=== PATIENT | male | born 1965 | race African-American/Black ===

== ENCOUNTER 2018-03-24 14:42 | Inpatient (IN) | payer SELFPAY ==
[~2018-03-24] VITALS: Ht 167.6 cm; Wt 90.4 kg
[2018-03-24] MEDS ORDERED: ACETAMINOPHEN 325MG TABLET PO ONE (16:00)
[2018-03-24] MEDS ORDERED: SODIUM CHLORIDE 0.9% 1000ML BAG (SEPSIS BOLUS) IV ONE (16:00)
[2018-03-24 16:26] LABS: HEMATOCRIT. 33.5 % (42.0-52.0); HEMOGLOBIN. 10.9 g/dL (14.0-18.0); MEAN CORPUSCULAR HEMOGLOBIN 22.2 pg (28.0-32.0); MEAN CORPUSCULAR VOLUME 67.9 fL (80.0-94.0); MEAN PLATELET VOLUME 8.6 fl (7.4-10.4); PLATELET 76 x1000/uL (130-400); RED BLOOD CELL COUNT 4.93 mill/uL (4.7-6.1); RED CELL DISTRIBUTION WIDTH 14.7 % (11.6-14.6)
[2018-03-24 16:30] LABS: CHLORIDE 100 mEq/L (98-107)
[2018-03-24 16:35] LABS: AMMONIA < 10 uMol/L (<32)
[2018-03-24 16:37] LABS: INR 1.1; PARTIAL THROMBOPLASTIN TIME 25.2 sec (23.4-31.0); PROTHROMBIN TIME 11.4 sec (9.4-11.6)
[2018-03-24 17:09] LABS: PLATELET ESTIMATE MARKEDLY DECREASED
[2018-03-24 17:50] LABS: CLARITY URINE CLEAR (CLEAR); COLOR URINE DARK YELLOW (YELLOW); KETONES URINE NEGATIVE (NEGATIVE); LEUKOCYTE ESTERASE URINE NEGATIVE (NEGATIVE); NITRITE URINE NEGATIVE (NEGATIVE); OCCULT BLOOD URINE NEGATIVE (NEGATIVE); PROTEIN URINE 1+ (NEGATIVE); SPECIFIC GRAVITY URINE 1.021 (1.005-1.030)
[2018-03-24] MEDS ORDERED: PIPERACILLIN/TAZ 3.375G PREMIX 50 ML IV ONE (18:45)
[2018-03-24] MEDS ORDERED: VANCOMYCIN 1 G PREMIX 200 ML IV SCH (18:45)
[2018-03-24 18:48] LABS: *BARBITURATES SCREEN URINE NEGATIVE (NEGATIVE)
[2018-03-24 18:49] LABS: *AMPHETAMINES SCREEN URINE NEGATIVE (NEGATIVE); *BENZODIAZEPINES SCREEN URINE NEGATIVE (NEGATIVE); *COCAINE SCREEN URINE NEGATIVE (NEGATIVE); CANNABINOID URINE SCREEN NEGATIVE (NEGATIVE); METHADONE URINE SCREEN NEGATIVE (NEGATIVE); OPIATES URINE SCREEN NEGATIVE (NEGATIVE); PHENCYCLIDINE URINE SCREEN NEGATIVE (NEGATIVE)
[2018-03-24] MEDS ORDERED: HYDROCODONE/ACETAMINOPHEN 5/325MG TABLET PO PRN (21:00)
[2018-03-24] MEDS ORDERED: ACETAMINOPHEN 325MG TABLET PO PRN (21:00)
[2018-03-24] MEDS ORDERED: IPRATROPIUM/ALBUTEROL 0.5-3(2.5)MG/3ML NEB INH PRN (21:00)
[2018-03-24] MEDS ORDERED: DOCUSATE SODIUM 100MG CAPSULE PO PRN (21:00)
[2018-03-24] MEDS ORDERED: NA PHOS,M-B/NA PHOS,DI-BA ENEMA 118ML PR PRN (21:00)
[2018-03-24] MEDS ORDERED: MAGNESIUM/ALUMINUM HYDROXIDE/SIMETHICONE 30ML UDC PO PRN (21:00)
[2018-03-24] MEDS ORDERED: SODIUM CHLORIDE 0.45% 1,000 ML IV SCH (21:00)
[2018-03-24] MEDS ORDERED: LORAZEPAM 2MG/ML CPJ IV PRN (21:00)
[2018-03-24] MEDS ORDERED: GUAIFENESIN 200MG/10ML SUGAR FREE UDC PO PRN (21:00)
[2018-03-24] MEDS ORDERED: ONDANSETRON HCL 4MG/2ML VIAL IV PRN (21:00)
[2018-03-24] MEDS ORDERED: CLONIDINE 0.1MG TABLET PO PRN (21:00)
[2018-03-24] MEDS ORDERED: MORPHINE SULFATE 4 MG/ML CPJ (NOT FOR IM USE) IV PRN (21:00)
[2018-03-24] MEDS ORDERED: ENOXAPARIN 40MG/0.4ML SYR SUBCUT SCH (21:00)
[2018-03-24 22:40] VITALS: BP 127/71
[2018-03-24] MEDS ORDERED: ACET-2178 PO (22:46)
[2018-03-24 22:51] VITALS: BP 127/71
[2018-03-24] MEDS: SODIUM CHLORIDE 0.45% 1,000 ML IV SCH (23:21)
[2018-03-25] MEDS ORDERED: LEVOFLOXACIN 500MG PREMIX 100 ML IV SCH
[2018-03-25 04:00] VITALS: BP 129/79
[2018-03-25] MEDS ORDERED: IBUPROFEN 600MG TABLET PO PRN (06:30)
[2018-03-25 06:52] LABS: CHLORIDE 107 mEq/L (98-107)
[2018-03-25 07:00] LABS: LDL CHOLESTEROL 32 mg/dL (5-100)
[2018-03-25 07:02] LABS: HDL CHOLESTEROL 8 mg/dL (40-59)
[2018-03-25 07:14] LABS: HEMATOCRIT. 29.2 % (42.0-52.0); HEMOGLOBIN. 9.5 g/dL (14.0-18.0); MEAN CORPUSCULAR HEMOGLOBIN 22.3 pg (28.0-32.0); MEAN CORPUSCULAR VOLUME 68.7 fL (80.0-94.0); MEAN PLATELET VOLUME 8.4 fl (7.4-10.4); PLATELET 70 x1000/uL (130-400); RED BLOOD CELL COUNT 4.25 mill/uL (4.7-6.1)
[2018-03-25] MEDS: PIPERACILLIN/TAZ 3.375G PREMIX 50 ML IV SCH ×2 (09:29→16:00)
[2018-03-25 12:00] VITALS: BP 127/85
[2018-03-25 16:00] VITALS: BP 120/79
[2018-03-25 18:06] LABS: PLATELET ESTIMATE DECREASED
[2018-03-25 20:00] VITALS: BP 110/76
[2018-03-25] MEDS: SODIUM CHLORIDE 0.45% 1,000 ML IV SCH (20:18)
[2018-03-25] MEDS ORDERED: ZOLPIDEM TARTRATE 5MG TABLET PO PRN (23:28)
[2018-03-26] VITALS: BP 138/88
[2018-03-26] MEDS: PIPERACILLIN/TAZ 3.375G PREMIX 50 ML IV SCH ×2 (01:09→07:09)
[2018-03-26 04:00] VITALS: BP 112/73
[2018-03-26 08:00] VITALS: BP 126/80
[2018-03-26 11:05] VITALS: BP 153/82
== END 2018-03-26 11:30 | disposition home or self-care (01) | DRG 723 ==
LOC: ER 14:42 → 5WST 18:52 → EDBEDREQTM 18:59 → EDBEDREQ 18:59 → EDBEDREQSVC 18:59 → ENRESERV 21:04
PROVIDERS: ADMIT Internal Medicine; ATTEND Internal Medicine
DX: B34.9 Viral infection, unspecified (principal); R65.10 Systemic inflammatory response syndrome (SIRS) of non-infectious origin without acute organ dysfunction; E86.0 Dehydration
CPT/HCPCS: 36415; 70450; 71045; 80053; 80061; 80305; 81003; 82140; 83605; 83690; 84484; 85025; 85610; 85730; 87040; 87086; 93005; 96365; 96366; 96368; 99285; J1956; J2405; J2543; J3370; J7030